=== PATIENT | male | born 1975 | race Caucasian/White ===

== ENCOUNTER 2018-05-13 11:39 | Inpatient (IN) | payer OTHER ==
[2018-05-13 12:27] VITALS: BMI 25.5
--- NOTE | 2018-05-13 12:48 | HP ---
[facility] Rehab Assess/Revision - Admission History Admitted to Rehab from: [facility] [place] (COMPLETED DETOX FROM 05/08/18 TO 05/12/18) - Vital signs Vital Signs: Vital Signs Period Temp Pulse Resp BP Sys/Tobar Pulse Ox Last 24 Hr 98.9 F 98 19 159/106 - Findings Detox History & Physical reviewed: Yes Concur with findings: Yes Comments/Additional Findings: PT CAME BACK TO CONTINUE WITH AFTERCARE AFTER DETOX. PT IS ON S.T.A.R.T.-MMTP AND RECEIVED HIS DOSE OF 80 MG PO TODAY. Inpatient Rehab Admission - Initial Determination Are CD services needed?: Yes Free of communicable disease: Yes Not in need of hospitalization: Yes - Rehab Admission Criteria Patient is meeting Inpatient Rehab admission criteria:: Yes
[2018-05-13] MEDS ORDERED: MAGNESIUM HYDROX 2400MG/30ML ORAL SUSPENSION 30 ML CUP PO PRN (12:52)
[2018-05-13] MEDS ORDERED: guaiFENesin/D-METHORPHAN HB 10 ML UNIT-DOSE CUPS PO PRN (12:52)
[2018-05-13] MEDS ORDERED: IBUPROFEN 400 MG TABLET (FP) PO PRN (12:52)
[2018-05-13] MEDS ORDERED: MAGNESIUM CITRATE 300 ML BOTTLE PO PRN (12:52)
[2018-05-13] MEDS ORDERED: ACETAMINOPHEN 325 MG TABLET (FP) PO PRN (12:52)
[2018-05-13] MEDS ORDERED: P-EPHED 60MG/TRIPROLIDI 2.5MG TABLET PO PRN (12:52)
[2018-05-13] MEDS ORDERED: MENTHOL/PHENOL 1 EACH UD MM PRN (12:52)
[2018-05-13] MEDS ORDERED: LOPERAMIDE HCL 2 MG CAPSULE PO PRN (12:52)
[2018-05-13] MEDS ORDERED: hydrOXYzine PAMOATE 50 MG CAPSULE (FP) PO PRN (12:52)
[2018-05-13] MEDS: amLODIPine BESYLATE 10 MG TABLET (FP) PO SCH (14:56)
[2018-05-13] MEDS: MAG HYDROX/AL HYDROX/SIMETH 30 ML UNIT-DOSE CUP PO PRN (15:52)
[2018-05-13] MEDS: THIAMINE HCL 100 MG TABLET (FP) PO SCH (21:41)
[2018-05-13] MEDS ORDERED: MELATONIN 5 MG TABLETS PO PRN (22:00)
--- NOTE | 2018-05-14 06:56 | HP ---
Psychiatrist Admission - Data Date of interview: 05/14/18 Admission source: 3N Identifying data: This is the first [facility] admission for this 42 years old single male, father of 3 children, unemployed on food stamp, domiciled living with his fiance Medical History: Significant for bronchial astma, hypertension and GERD, Patient is on methadone 80 mg/day. Smokes 10 cigarettes daily Psychiatric History: Patient reports that his first psychiatric contact was in 2009 when he was admitted to [facility]/Mike Silvestre and diagnosed with Depression. Claims that he was discharged on Prozac and Trazadone and Referred for follow up but did not comply. Reports a second admission in 2011 [facility] for depression. He was discharged on Prozac and Trazadone and again did not follow up discgarge instruction to attend aftercare. Told newspaper writer that for both admissions, he was using. He saw SLOAN Bautista on 05/09/18 while in detox and was prescribed Prozac 20 mg po daily. At present, Reports feeling well but sleeping poorly Physical/Sexual Abuse/Trauma History: Denies history of emotional, physical or sexual abuse as well as DV relationship. No service Additional Comment: Reports history of 3 previous arrests including 2 felony convictions. Reports last serving 10 years in intermediate from [id number]. Denies being on parole/probation currently Vital Signs: Vital Signs - 24 hr 05/13/18 05/13/18 05/14/18 12:24 15:11 03:30 Temperature 98.9 F 98.3 F Pulse Rate 98 H 103 H Respiratory 19 18 18 Rate Blood Pressure 159/106 149/110 Allergies/Adverse Reactions: Allergies Allergy/AdvReac Type Severity Reaction Status Date / Time shellfish derived Allergy Severe Verified 05/13/18 12:44 No Known Drug Allergies Allergy Verified 05/13/18 12:44 Date of last physical exam: 05/08/18 Concur with the findings of this exam: Yes - Substance Abuse/Tx History Hx Alcohol Use: Yes Hx Substance Use: Yes (Currently attends [facility]) Substance Use Type: Alcohol (Started drinking alcohol at age12, consumes 2-3 pints of vodka & 3x 6pk of beer daily. Last drank on 05/08/18), Cocaine (Started using cocaine at age 12, consumes $50 worth daily. Last used on 05/06/18), Heroin (Started using heroin at age 27, consumes 3 bagsdaily.Last used on ) Hx Substance Use Treatment: Yes (One previous inpt detox @ [facility]) Mental Status Exam - Mental Status Exam Alert and Oriented to: Time, Place, Person Cognitive Function: Fair Patient Appearance: Well Groomed Mood: Hopeful, Euthymic Patient Behavior: Cooperative Voice Loudness: Normal Thought Process: Intact, Goal Oriented Thought Disorder: Not Present Hallucinations: Denies Suicidal Ideation: Denies Homicidal Ideation: Denies Insight/Judgement: Fair Appetite: Good Muscle strength/Tone: Normal Gait/Station: Normal Psychiatric Findings - Problem List ([place] 1, 2,3) (1) Alcohol dependence Current Visit: Yes Status: Acute (2) Cocaine dependence Current Visit: No Status: Acute Qualifiers: Substance use status: uncomplicated Qualified Code(s): F14.20 - Cocaine dependence, uncomplicated (3) Opioid dependence on agonist therapy Current Visit: Yes Status: Chronic (4) Nicotine dependence Current Visit: Yes Status: Chronic (5) Depressive disorder Current Visit: Yes Status: Chronic (6) Substance induced mood disorder Current Visit: Yes Status: Ruled-out (7) Substance-induced sleep disorder Current Visit: Yes Status: Acute (8) Asthma Current Visit: Yes Status: Chronic Qualifiers: Asthma severity: mild Asthma persistence: unspecified Asthma complication type: uncomplicated Qualified Code(s): J45.909 - Unspecified asthma, uncomplicated (9) Essential hypertension Current Visit: Yes Status: Chronic - Initial Treatment Plan Initial Treatment Plan: 1) Continue Prozac 20 mg po daily. 2) Start Trazadone 25 mg po HS. 3) Monitor progress
[2018-05-14] MEDS: METHADONE HCL 40 MG DISPERSABLE TABLET PO SCH (08:25)
[2018-05-14] MEDS: PRENATAL VITAMINS W/ FOLIC ACID TABLET (FP) PO SCH (10:23)
[2018-05-14] MEDS: LISINOPRIL 10 MG TABLET (FP) PO SCH ×2 (10:23→21:13)
[2018-05-14] MEDS: NICOTINE 14 MG/24 HOURS TOPICAL PATCH TD SCH (10:23)
[2018-05-14] MEDS: amLODIPine BESYLATE 10 MG TABLET (FP) PO SCH (10:23)
[2018-05-14 10:24] LABS: URINE APPEARANCE CLEAR; URINE BILIRUBIN NEGATIVE (<2.0 mg/dL); URINE COLOR LTYELLOW; URINE GLUCOSE (UA) NEGATIVE (NEGATIVE); URINE KETONE NEGATIVE (NEGATIVE); URINE LEUK ESTERASE NEGATIVE (NEGATIVE); URINE NITRITE NEGATIVE (NEGATIVE); URINE PROTEIN NEGATIVE (NEGATIVE); URINE UROBILINOGEN NEGATIVE mg/dL (0.2-1.0)
[2018-05-14] MEDS: MAG HYDROX/AL HYDROX/SIMETH 30 ML UNIT-DOSE CUP PO PRN (11:25)
--- NOTE | 2018-05-14 13:14 | EKG ---
Test Reason : Blood Pressure : / mmHG Vent. Rate : 077 BPM Atrial Rate : 077 BPM P-R Int : 120 ms QRS Dur : 092 ms QT Int : 422 ms P-R-T Axes : 054 070 073 degrees QTc Int : 477 ms NORMAL SINUS RHYTHM NORMAL ECG WHEN COMPARED WITH ECG OF 08-MAY-2018 17:05, NO SIGNIFICANT CHANGE WAS FOUND Confirmed by MD VIRY, MOHSEN ([id number]) on 05/14/2018 1:14:10 PM Referred By: Confirmed By:MOHSEN BAIRES MD
--- NOTE | 2018-05-14 14:07 | PN ---
[facility] Progress Note Note: c/o of acid reflux Vital Signs Temperature 97.7 F 05/14/18 09:00 Pulse Rate 78 05/14/18 09:00 Respiratory Rate 18 05/14/18 09:00 Blood Pressure 126/92 05/14/18 09:00 O2 Sat by Pulse Oximetry (%) Laboratory Last Values Urine Color Ltyellow 05/14/18 06:00 Urine Appearance Clear 05/14/18 06:00 Urine pH 6.0 (5.0-8.0) 05/14/18 06:00 Ur Specific [place] 1.012 (1.001-1.035) 05/14/18 06:00 Urine Protein Negative (NEGATIVE) 05/14/18 06:00 Urine Glucose (UA) Negative (NEGATIVE) 05/14/18 06:00 Urine Ketones Negative (NEGATIVE) 05/14/18 06:00 Urine Blood Negative (NEGATIVE) 05/14/18 06:00 Urine Nitrite Negative (NEGATIVE) 05/14/18 06:00 Urine Bilirubin Negative (<2.0 mg/dL) 05/14/18 06:00 Urine Urobilinogen Negative mg/dL (0.2-1.0) 05/14/18 06:00 Ur Leukocyte Esterase Negative (NEGATIVE) 05/14/18 06:00 protonix 20mg qd increase fluids continue to monitor
[2018-05-14] MEDS: FLUoxetine HCL 20 MG CAPSULE (FP) PO SCH (14:40)
[2018-05-14] MEDS: PANTOPRAZOLE 20 MG TABLET (FP) PO SCH (14:41)
[2018-05-14] MEDS: THIAMINE HCL 100 MG TABLET (FP) PO SCH (21:13)
[2018-05-14] MEDS: traZODone HCL 50 MG TABLET (FP) PO SCH (22:15)
[2018-05-15] MEDS: METHADONE HCL 40 MG DISPERSABLE TABLET PO SCH (06:12)
[2018-05-15] MEDS: amLODIPine BESYLATE 10 MG TABLET (FP) PO SCH (10:21)
[2018-05-15] MEDS: NICOTINE 14 MG/24 HOURS TOPICAL PATCH TD SCH (10:21)
[2018-05-15] MEDS: PRENATAL VITAMINS W/ FOLIC ACID TABLET (FP) PO SCH (10:21)
[2018-05-15] MEDS: LISINOPRIL 10 MG TABLET (FP) PO SCH ×2 (10:21→21:47)
[2018-05-15] MEDS: PANTOPRAZOLE 20 MG TABLET (FP) PO SCH (10:21)
[2018-05-15] MEDS: FLUoxetine HCL 20 MG CAPSULE (FP) PO SCH (10:21)
[2018-05-15] MEDS: THIAMINE HCL 100 MG TABLET (FP) PO SCH (21:46)
[2018-05-15] MEDS: traZODone HCL 50 MG TABLET (FP) PO SCH (21:47)
[2018-05-16] MEDS: METHADONE HCL 40 MG DISPERSABLE TABLET PO SCH (06:12)
[2018-05-16] MEDS: NICOTINE POLACRILEX 2 MG GUM BUC PRN ×4 (06:14→19:25)
[2018-05-16] MEDS: NICOTINE 14 MG/24 HOURS TOPICAL PATCH TD SCH (09:47)
[2018-05-16] MEDS: PANTOPRAZOLE 20 MG TABLET (FP) PO SCH (09:47)
[2018-05-16] MEDS: FLUoxetine HCL 20 MG CAPSULE (FP) PO SCH (09:47)
[2018-05-16] MEDS: LISINOPRIL 10 MG TABLET (FP) PO SCH ×2 (09:47→21:19)
[2018-05-16] MEDS: amLODIPine BESYLATE 10 MG TABLET (FP) PO SCH (09:47)
[2018-05-16] MEDS: PRENATAL VITAMINS W/ FOLIC ACID TABLET (FP) PO SCH (09:47)
[2018-05-16] MEDS: THIAMINE HCL 100 MG TABLET (FP) PO SCH (21:19)
[2018-05-16] MEDS: traZODone HCL 50 MG TABLET (FP) PO SCH (21:20)
[2018-05-17] MEDS: MAG HYDROX/AL HYDROX/SIMETH 30 ML UNIT-DOSE CUP PO PRN (01:58)
[2018-05-17] MEDS: METHADONE HCL 40 MG DISPERSABLE TABLET PO SCH (06:17)
[2018-05-17] MEDS: amLODIPine BESYLATE 10 MG TABLET (FP) PO SCH (10:18)
[2018-05-17] MEDS: NICOTINE 14 MG/24 HOURS TOPICAL PATCH TD SCH (10:18)
[2018-05-17] MEDS: PANTOPRAZOLE 20 MG TABLET (FP) PO SCH (10:18)
[2018-05-17] MEDS: PRENATAL VITAMINS W/ FOLIC ACID TABLET (FP) PO SCH (10:18)
[2018-05-17] MEDS: LISINOPRIL 10 MG TABLET (FP) PO SCH ×2 (10:18→22:12)
[2018-05-17] MEDS: FLUoxetine HCL 20 MG CAPSULE (FP) PO SCH (10:18)
[2018-05-17] MEDS: NICOTINE POLACRILEX 2 MG GUM BUC PRN ×3 (10:20→22:13)
[2018-05-17] MEDS: THIAMINE HCL 100 MG TABLET (FP) PO SCH (22:12)
[2018-05-17] MEDS: traZODone HCL 50 MG TABLET (FP) PO SCH (22:13)
[2018-05-18] MEDS: METHADONE HCL 40 MG DISPERSABLE TABLET PO SCH (06:40)
[2018-05-18] MEDS: NICOTINE POLACRILEX 2 MG GUM BUC PRN ×4 (06:43→21:58)
[2018-05-18] MEDS: amLODIPine BESYLATE 10 MG TABLET (FP) PO SCH (10:11)
[2018-05-18] MEDS: NICOTINE 14 MG/24 HOURS TOPICAL PATCH TD SCH (10:11)
[2018-05-18] MEDS: PANTOPRAZOLE 20 MG TABLET (FP) PO SCH (10:11)
[2018-05-18] MEDS: FLUoxetine HCL 20 MG CAPSULE (FP) PO SCH (10:11)
[2018-05-18] MEDS: LISINOPRIL 10 MG TABLET (FP) PO SCH ×2 (10:11→21:57)
[2018-05-18] MEDS: PRENATAL VITAMINS W/ FOLIC ACID TABLET (FP) PO SCH (10:11)
[2018-05-18] MEDS: traZODone HCL 50 MG TABLET (FP) PO SCH (21:57)
[2018-05-18] MEDS: THIAMINE HCL 100 MG TABLET (FP) PO SCH (21:57)
[2018-05-19] MEDS: METHADONE HCL 40 MG DISPERSABLE TABLET PO SCH (05:51)
[2018-05-19] MEDS: NICOTINE POLACRILEX 2 MG GUM BUC PRN ×3 (06:21→22:10)
[2018-05-19] MEDS: PRENATAL VITAMINS W/ FOLIC ACID TABLET (FP) PO SCH (10:13)
[2018-05-19] MEDS: LISINOPRIL 10 MG TABLET (FP) PO SCH ×2 (10:13→22:10)
[2018-05-19] MEDS: PANTOPRAZOLE 20 MG TABLET (FP) PO SCH (10:13)
[2018-05-19] MEDS: NICOTINE 14 MG/24 HOURS TOPICAL PATCH TD SCH (10:13)
[2018-05-19] MEDS: amLODIPine BESYLATE 10 MG TABLET (FP) PO SCH (10:13)
[2018-05-19] MEDS: FLUoxetine HCL 20 MG CAPSULE (FP) PO SCH (10:13)
[2018-05-19] MEDS: THIAMINE HCL 100 MG TABLET (FP) PO SCH (22:10)
[2018-05-19] MEDS: traZODone HCL 50 MG TABLET (FP) PO SCH (22:11)
[2018-05-20] MEDS: METHADONE HCL 40 MG DISPERSABLE TABLET PO SCH (06:13)
[2018-05-20] MEDS: amLODIPine BESYLATE 10 MG TABLET (FP) PO SCH (10:31)
[2018-05-20] MEDS: FLUoxetine HCL 20 MG CAPSULE (FP) PO SCH (10:31)
[2018-05-20] MEDS: PANTOPRAZOLE 20 MG TABLET (FP) PO SCH (10:31)
[2018-05-20] MEDS: NICOTINE 14 MG/24 HOURS TOPICAL PATCH TD SCH (10:31)
[2018-05-20] MEDS: LISINOPRIL 10 MG TABLET (FP) PO SCH ×2 (10:31→22:05)
[2018-05-20] MEDS: PRENATAL VITAMINS W/ FOLIC ACID TABLET (FP) PO SCH (10:31)
[2018-05-20] MEDS: NICOTINE POLACRILEX 2 MG GUM BUC PRN ×3 (10:33→22:05)
[2018-05-20] MEDS: THIAMINE HCL 100 MG TABLET (FP) PO SCH (22:05)
[2018-05-20] MEDS: traZODone HCL 50 MG TABLET (FP) PO SCH (22:06)
[2018-05-21] MEDS: METHADONE HCL 40 MG DISPERSABLE TABLET PO SCH (06:04)
[2018-05-21] MEDS: PANTOPRAZOLE 20 MG TABLET (FP) PO SCH (10:10)
[2018-05-21] MEDS: PRENATAL VITAMINS W/ FOLIC ACID TABLET (FP) PO SCH (10:10)
[2018-05-21] MEDS: FLUoxetine HCL 20 MG CAPSULE (FP) PO SCH (10:10)
[2018-05-21] MEDS: LISINOPRIL 10 MG TABLET (FP) PO SCH ×2 (10:10→21:39)
[2018-05-21] MEDS: amLODIPine BESYLATE 10 MG TABLET (FP) PO SCH (10:10)
[2018-05-21] MEDS: NICOTINE POLACRILEX 2 MG GUM BUC PRN ×3 (10:11→22:35)
[2018-05-21] MEDS: NICOTINE 14 MG/24 HOURS TOPICAL PATCH TD SCH (10:11)
[2018-05-21] MEDS: traZODone HCL 50 MG TABLET (FP) PO SCH (21:39)
[2018-05-21] MEDS: THIAMINE HCL 100 MG TABLET (FP) PO SCH (21:40)
[2018-05-22] MEDS: METHADONE HCL 40 MG DISPERSABLE TABLET PO SCH (06:28)
[2018-05-22] MEDS: PANTOPRAZOLE 20 MG TABLET (FP) PO SCH (09:40)
[2018-05-22] MEDS: FLUoxetine HCL 20 MG CAPSULE (FP) PO SCH (09:40)
[2018-05-22] MEDS: NICOTINE 14 MG/24 HOURS TOPICAL PATCH TD SCH (09:40)
[2018-05-22] MEDS: PRENATAL VITAMINS W/ FOLIC ACID TABLET (FP) PO SCH (09:40)
[2018-05-22] MEDS: amLODIPine BESYLATE 10 MG TABLET (FP) PO SCH (09:40)
[2018-05-22] MEDS: LISINOPRIL 10 MG TABLET (FP) PO SCH ×2 (09:40→21:16)
[2018-05-22] MEDS: NICOTINE POLACRILEX 2 MG GUM BUC PRN ×3 (09:42→21:17)
[2018-05-22] MEDS ORDERED: METHADONE HCL 40 MG DISPERSABLE TABLET PO SCH (13:38)
--- NOTE | 2018-05-22 13:41 | PN ---
[facility] Progress Note Note: PATIENT SEEN FOR REQUESTS TO DECREASE MTD BY 5MG FROM 80MG TO 75MG. PATIENT STATES HE FEELS CURRENT DOSE IS STRONG AND MAKES HIM FEEL SLEEPY. Vital Signs Temperature 97.6 F 05/22/18 07:49 Pulse Rate 94 H 05/22/18 10:00 Respiratory Rate 05/22/18 10:00 Blood Pressure 123/79 05/22/18 10:00 O2 Sat by Pulse Oximetry (%) Laboratory Tests 05/14/18 06:00 Urine Color Ltyellow Urine Appearance Clear Urine pH 6.0 Ur Specific [place] 1.012 Urine Protein Negative Urine Glucose (UA) Negative Urine Ketones Negative Urine Blood Negative Urine Nitrite Negative Urine Bilirubin Negative Urine Urobilinogen Negative Ur Leukocyte Esterase Negative PE: SKIN WARM AND DRY. GENERAL: ALERT AND ORIENTED X 3. IN NAD. EXT:NO EDEMA, FULL ROM A/P: MMTP WILL DECREASE TO 75MG DAILY (MTD) CONTINUE TO MONITOR CLINICALLY
[2018-05-22] MEDS: traZODone HCL 50 MG TABLET (FP) PO SCH (21:16)
[2018-05-22] MEDS: THIAMINE HCL 100 MG TABLET (FP) PO SCH (21:17)
[2018-05-23] MEDS ORDERED: METHADONE HCL 40 MG DISPERSABLE TABLET ONE (04:10)
[2018-05-23] MEDS ORDERED: METHADONE HCL 5 MG TABLET ONE (04:10)
[2018-05-23] MEDS ORDERED: METHADONE HCL 10 MG TABLET ONE (04:10)
[2018-05-23] MEDS: METHADONE 40 MG, METHADONE 30 MG, METHADONE 5 MG PO SCH (06:24)
[2018-05-23] MEDS: NICOTINE 14 MG/24 HOURS TOPICAL PATCH TD SCH (09:59)
[2018-05-23] MEDS: PANTOPRAZOLE 20 MG TABLET (FP) PO SCH (09:59)
[2018-05-23] MEDS: PRENATAL VITAMINS W/ FOLIC ACID TABLET (FP) PO SCH (09:59)
[2018-05-23] MEDS: FLUoxetine HCL 20 MG CAPSULE (FP) PO SCH (09:59)
[2018-05-23] MEDS: LISINOPRIL 10 MG TABLET (FP) PO SCH ×2 (09:59→21:40)
[2018-05-23] MEDS: amLODIPine BESYLATE 10 MG TABLET (FP) PO SCH (09:59)
[2018-05-23] MEDS: NICOTINE POLACRILEX 2 MG GUM BUC PRN ×3 (10:01→21:41)
[2018-05-23] MEDS ORDERED: PT OWN MED DRAWER 7, Y5N ONE ×2 (10:03→10:24)
--- NOTE | 2018-05-23 15:21 | PN ---
[facility] Progress Note Note: Vital Signs Temperature 98.1 F 05/23/18 07:12 Pulse Rate 106 H 05/23/18 10:00 Respiratory Rate 18 05/23/18 10:00 Blood Pressure 131/80 05/23/18 10:00 O2 Sat by Pulse Oximetry (%) Patient requested protonix to be d/c, reports improvement in symptoms. Medication ordered as per patients request. continue to monitor
[2018-05-23] MEDS: ALBUTEROL SO4 8 GM HFA INHALER IH PRN (15:34)
[2018-05-23] MEDS: traZODone HCL 50 MG TABLET (FP) PO SCH (21:39)
[2018-05-23] MEDS: THIAMINE HCL 100 MG TABLET (FP) PO SCH (21:40)
[2018-05-24] MEDS ORDERED: METHADONE HCL 10 MG TABLET ONE (04:17)
[2018-05-24] MEDS ORDERED: METHADONE HCL 40 MG DISPERSABLE TABLET ONE (04:17)
[2018-05-24] MEDS ORDERED: METHADONE HCL 5 MG TABLET ONE (04:17)
[2018-05-24] MEDS: METHADONE 40 MG, METHADONE 30 MG, METHADONE 5 MG PO SCH (06:23)
[2018-05-24] MEDS: NICOTINE POLACRILEX 2 MG GUM BUC PRN ×2 (09:00→21:41)
[2018-05-24] MEDS: amLODIPine BESYLATE 10 MG TABLET (FP) PO SCH (10:09)
[2018-05-24] MEDS: PRENATAL VITAMINS W/ FOLIC ACID TABLET (FP) PO SCH (10:09)
[2018-05-24] MEDS: FLUoxetine HCL 20 MG CAPSULE (FP) PO SCH (10:09)
[2018-05-24] MEDS: NICOTINE 14 MG/24 HOURS TOPICAL PATCH TD SCH (10:09)
[2018-05-24] MEDS: LISINOPRIL 10 MG TABLET (FP) PO SCH ×2 (10:09→21:38)
[2018-05-24] MEDS: THIAMINE HCL 100 MG TABLET (FP) PO SCH (21:39)
[2018-05-24] MEDS: traZODone HCL 50 MG TABLET (FP) PO SCH (21:40)
[2018-05-24] MEDS: ALBUTEROL SO4 8 GM HFA INHALER IH PRN (21:43)
[2018-05-24] MEDS ORDERED: PT OWN MED DRAWER 7, Y5N ONE (21:43)
[2018-05-25] MEDS ORDERED: METHADONE HCL 5 MG TABLET ONE (03:16)
[2018-05-25] MEDS ORDERED: METHADONE HCL 40 MG DISPERSABLE TABLET ONE (03:16)
[2018-05-25] MEDS ORDERED: METHADONE HCL 10 MG TABLET ONE (03:16)
[2018-05-25] MEDS: METHADONE 40 MG, METHADONE 30 MG, METHADONE 5 MG PO SCH (06:08)
[2018-05-25] MEDS: NICOTINE 14 MG/24 HOURS TOPICAL PATCH TD SCH (09:48)
[2018-05-25] MEDS: PRENATAL VITAMINS W/ FOLIC ACID TABLET (FP) PO SCH (09:49)
[2018-05-25] MEDS: FLUoxetine HCL 20 MG CAPSULE (FP) PO SCH (09:49)
[2018-05-25] MEDS: LISINOPRIL 10 MG TABLET (FP) PO SCH ×2 (09:49→21:20)
[2018-05-25] MEDS: amLODIPine BESYLATE 10 MG TABLET (FP) PO SCH (09:49)
[2018-05-25] MEDS: NICOTINE POLACRILEX 2 MG GUM BUC PRN ×3 (09:50→17:09)
[2018-05-25] MEDS: ALBUTEROL SO4 8 GM HFA INHALER IH PRN (17:09)
[2018-05-25] MEDS: THIAMINE HCL 100 MG TABLET (FP) PO SCH (21:20)
[2018-05-25] MEDS: traZODone HCL 50 MG TABLET (FP) PO SCH (21:20)
[2018-05-26] MEDS ORDERED: METHADONE HCL 10 MG TABLET ONE (02:45)
[2018-05-26] MEDS ORDERED: METHADONE HCL 40 MG DISPERSABLE TABLET ONE (02:45)
[2018-05-26] MEDS ORDERED: METHADONE HCL 5 MG TABLET ONE (02:46)
[2018-05-26] MEDS: METHADONE 40 MG, METHADONE 30 MG, METHADONE 5 MG PO SCH (06:14)
[2018-05-26] MEDS: PRENATAL VITAMINS W/ FOLIC ACID TABLET (FP) PO SCH (09:52)
[2018-05-26] MEDS: NICOTINE 14 MG/24 HOURS TOPICAL PATCH TD SCH (09:52)
[2018-05-26] MEDS: FLUoxetine HCL 20 MG CAPSULE (FP) PO SCH (09:52)
[2018-05-26] MEDS: LISINOPRIL 10 MG TABLET (FP) PO SCH ×2 (09:52→22:01)
[2018-05-26] MEDS: NICOTINE POLACRILEX 2 MG GUM BUC PRN ×3 (09:52→22:02)
[2018-05-26] MEDS: amLODIPine BESYLATE 10 MG TABLET (FP) PO SCH (09:52)
[2018-05-26] MEDS: THIAMINE HCL 100 MG TABLET (FP) PO SCH (22:01)
[2018-05-26] MEDS: traZODone HCL 50 MG TABLET (FP) PO SCH (22:01)
[2018-05-27] MEDS ORDERED: METHADONE HCL 40 MG DISPERSABLE TABLET ONE (04:13)
[2018-05-27] MEDS ORDERED: METHADONE HCL 5 MG TABLET ONE (04:13)
[2018-05-27] MEDS ORDERED: METHADONE HCL 10 MG TABLET ONE (04:13)
[2018-05-27] MEDS: METHADONE 40 MG, METHADONE 30 MG, METHADONE 5 MG PO SCH (05:59)
[2018-05-27] MEDS: NICOTINE POLACRILEX 2 MG GUM BUC PRN ×3 (06:02→21:19)
[2018-05-27] MEDS: LISINOPRIL 10 MG TABLET (FP) PO SCH ×2 (10:18→21:18)
[2018-05-27] MEDS: FLUoxetine HCL 20 MG CAPSULE (FP) PO SCH (10:18)
[2018-05-27] MEDS: amLODIPine BESYLATE 10 MG TABLET (FP) PO SCH (10:18)
[2018-05-27] MEDS: PRENATAL VITAMINS W/ FOLIC ACID TABLET (FP) PO SCH (10:18)
[2018-05-27] MEDS: NICOTINE 14 MG/24 HOURS TOPICAL PATCH TD SCH (10:19)
--- NOTE | 2018-05-27 13:04 | PN ---
[facility] Progress Note Note: PATIENT REQUESTING TO DECREASE METHADONE BY 5MG. STATES HE FEELS METHADONE DOSE IS TOO STRONG AND MAKES HIM DROWSY. PATIENT HAS TOLERATED TITRATION IN PAST. DENIES ANXIETY, SWEATING AND HEADACHES. WILL DECREASE DOSE OF MTD TO 70MG DAILY STARTING IN AM. CONTINUE TO MONITOR CLINICALLY.
[2018-05-27] MEDS: THIAMINE HCL 100 MG TABLET (FP) PO SCH (21:18)
[2018-05-27] MEDS: traZODone HCL 50 MG TABLET (FP) PO SCH (22:00)
[2018-05-28] MEDS ORDERED: METHADONE HCL 40 MG DISPERSABLE TABLET ONE (04:13)
[2018-05-28] MEDS ORDERED: METHADONE HCL 10 MG TABLET ONE (04:13)
[2018-05-28] MEDS ORDERED: METHADONE 40 MG, METHADONE 30 MG, METHADONE 5 MG PO SCH (06:00)
[2018-05-28] MEDS ORDERED: METHADONE HCL 40 MG DISPERSABLE TABLET PO SCH (06:00)
[2018-05-28] MEDS: METHADONE 40 MG, METHADONE 30 MG PO SCH (06:01)
[2018-05-28] MEDS: NICOTINE POLACRILEX 2 MG GUM BUC PRN ×3 (07:21→21:16)
[2018-05-28] MEDS: LISINOPRIL 10 MG TABLET (FP) PO SCH ×2 (09:45→21:15)
[2018-05-28] MEDS: NICOTINE 14 MG/24 HOURS TOPICAL PATCH TD SCH (09:45)
[2018-05-28] MEDS: FLUoxetine HCL 20 MG CAPSULE (FP) PO SCH (09:45)
[2018-05-28] MEDS: amLODIPine BESYLATE 10 MG TABLET (FP) PO SCH (09:45)
[2018-05-28] MEDS: PRENATAL VITAMINS W/ FOLIC ACID TABLET (FP) PO SCH (09:45)
[2018-05-28] MEDS ORDERED: PT OWN MED DRAWER 7, Y5N ONE (11:47)
[2018-05-28] MEDS: THIAMINE HCL 100 MG TABLET (FP) PO SCH (21:15)
[2018-05-28] MEDS: traZODone HCL 50 MG TABLET (FP) PO SCH (21:15)
[2018-05-29] MEDS ORDERED: METHADONE HCL 10 MG TABLET ONE (02:42)
[2018-05-29] MEDS ORDERED: METHADONE HCL 40 MG DISPERSABLE TABLET ONE (02:43)
[2018-05-29] MEDS: METHADONE 40 MG, METHADONE 30 MG PO SCH (06:09)
--- NOTE | 2018-05-29 06:34 | PN ---
Psychiatric Progress Note Vital Signs: Vital Signs Period Temp Pulse Resp BP Sys/Tobar Pulse Ox Last 24 Hr 97.5 F 67-80 -18 114-115/77-77 Date of Session: 05/29/18 Chief Complaint:: Discharge Note HPI: Patient addressing Alcohol and Cocaine Dependence comorbid with Opioid Dependendence on Agonist Therapy, Nicotine Dependence, DepressiveDisorder and Substance-Induced Sleep Disorder ROS: Asthma, HTN Current Medications: Active Medications Generic Name Dose Route Start Last Admin Trade Name Freq PRN Reason Stop Dose Admin Acetaminophen 650 mg 05/13/18 12:52 05/17/18 16:08 Tylenol - PO 650 mg Q4H PRN Administration FEVER Al Hydroxide/Mg Hydroxide 30 ml 05/13/18 12:52 05/17/18 01:58 Mylanta Oral Suspension - PO 30 ml Q6H PRN Administration DYSPEPSIA Albuterol Sulfate 2 puff 05/13/18 12:55 05/25/18 17:09 Ventolin Hfa Inhaler - IH 2 puff Q4H PRN Administration ASTHMA Amlodipine Besylate 10 mg 05/13/18 14:00 05/28/18 09:45 Norvasc - PO 10 mg DAILY JAMIL Administration Eucalyptus/Menthol/Phenol/Sorbitol 1 each 05/13/18 12:52 Cepastat Lozenge - MM Q4H PRN SORE THROAT Fluoxetine HCl 20 mg 05/14/18 13:00 05/28/18 09:45 Prozac - PO 20 mg DAILY JAMIL Administration Guaifenesin 10 ml 05/13/18 12:52 Robitussin Dm - PO Q6H PRN COUGH Hydroxyzine Pamoate 50 mg 05/13/18 12:52 05/13/18 21:41 Vistaril - PO 50 mg Q4H PRN Administration AGITATION Ibuprofen 400 mg 05/13/18 12:52 Motrin - PO Q6H PRN Pain level 4-6 Lisinopril 10 mg 05/14/18 10:00 05/28/18 21:15 Prinivil PO 10 mg BID JAMIL Administration Loperamide HCl 4 mg 05/13/18 12:52 Imodium - PO Q6H PRN DIARRHEA Magnesium Citrate 300 ml 05/13/18 12:52 Citroma - PO Q48H PRN CONSTIPATION Magnesium Hydroxide 30 ml 05/13/18 12:52 05/14/18 22:53 Milk Of Magnesia - PO 30 ml DAILY PRN Administration CONSTIPATION Melatonin 5 mg 05/13/18 22:00 Melatonin PO HS PRN INSOMNIA Methadone HCl 40 mg/ Methadone 70 mg 05/28/18 06:00 05/29/18 06:09 HCl 30 mg PO 06/03/18 05:59 70 mg DAILY@0600 JAMIL Administration Nicotine 14 mg 05/14/18 10:00 05/28/18 09:45 Nicoderm Patch - TD Not Given DAILY JAMIL Nicotine Polacrilex 2 mg 05/13/18 12:52 05/28/18 21:16 Nicorette Gum - BUC 2 mg Q2H PRN Administration NICOTINE REPLACEMENT RX Multivit/Folic Acid/Iron 1 tab 05/14/18 10:00 05/28/18 09:45 Vitamins (Sjr) - PO 1 tab DAILY JAMIL Administration Pseudoephedrine/Triprolidine 1 combo 05/13/18 12:52 Actifed - PO TID PRN NASAL CONGESTION Thiamine HCl 100 mg 05/13/18 22:00 05/28/18 21:15 Vitamin B1 - PO 100 mg HS JAMIL Administration Trazodone HCl 25 mg 05/14/18 22:00 05/28/18 21:15 Desyrel - PO 25 mg HS JAMIL Administration Current Side Effect: No Lab tests ordered: Yes Lab tests reviewed: Yes Provider note:: Patient has completed this program today. He has met his treatment goals and will continue to addreess his issues in outpatient treatment at [facility]. Told board writer from his participation in this program, he has learned the importance of making meetings and have a soponsor. He responded well to Prozac 20 mg po daily and Trazadone 25 mg po HS. Scripts for 30 days supply of medications will be electronocally transmitted to [facility] at [address] [place] [id number]. He is stable for discharge today Total face to face time:: 35 Mental Status Exam - Mental Status Exam Alert and Oriented to: Time, Place, Person Cognitive Function: Fair Patient Appearance: Well Groomed Mood: Hopeful, Euthymic Affect: Appropriate Patient Behavior: Cooperative Speech Pattern: Clear Voice Loudness: Normal Thought Process: Intact, Goal Oriented Thought Disorder: Not Present Hallucinations: Denies Suicidal Ideation: Denies Homicidal Ideation: Denies Insight/Judgement: Fair Sleep: Fair Appetite: Good Muscle strength/Tone: Normal Gait/Station: Normal Psychiatric Treatment Plan - Problem List (1) Alcohol dependence Current Visit: Yes (2) Cocaine dependence Current Visit: No Qualifiers: Substance use status: uncomplicated Qualified Code(s): F14.20 - Cocaine dependence, uncomplicated (3) Opioid dependence on agonist therapy Current Visit: Yes (4) Nicotine dependence Current Visit: Yes (5) Depressive disorder Current Visit: Yes (6) Substance induced mood disorder Current Visit: Yes (7) Substance-induced sleep disorder Current Visit: Yes (8) Asthma Current Visit: Yes Qualifiers: Asthma severity: mild Asthma persistence: unspecified Asthma complication type: uncomplicated Qualified Code(s): J45.909 - Unspecified asthma, uncomplicated (9) Essential hypertension Current Visit: Yes Initial treatment plan: Patient is discharged today and referred to [facility] for outpatient treatment
[2018-05-29 07:03] VITALS: BP 108/65; PULSE 72; TEMP 97.1
[2018-05-29] MEDS: NICOTINE POLACRILEX 2 MG GUM BUC PRN (08:33)
[2018-05-29] MEDS ORDERED: PT OWN MED DRAWER 7, Y5N ONE (08:36)
== END 2018-05-29 08:37 | disposition home or self-care (01) | DRG 772 ==
LOC: YASAS 11:39 → Y3W 13:18
PROVIDERS: ADMIT Psychiatry & Neurology Psychiatry; ATTEND Psychiatry & Neurology Psychiatry
PROC: HZ42ZZZ Group Counseling for Substance Abuse Treatment, Cognitive-Behavioral (ICD-10-PCS; principal; 2018-05-13)
DX: F10.20 Alcohol dependence, uncomplicated (principal); F14.20 Cocaine dependence, uncomplicated; F11.20 Opioid dependence, uncomplicated; F17.210 Nicotine dependence, cigarettes, uncomplicated; F19.24 Other psychoactive substance dependence with psychoactive substance-induced mood disorder; F19.282 Other psychoactive substance dependence with psychoactive substance-induced sleep disorder; I10 Essential (primary) hypertension; J45.909 Unspecified asthma, uncomplicated; R63.4 Abnormal weight loss; Z68.25 Body mass index [BMI] 25.0-25.9, adult
CPT/HCPCS: 81003; 93005; 93010